=== PATIENT | male | born 1960 | race Native Hawaiian/Other Pacific Islander ===

== ENCOUNTER 2017-05-06 15:53 | Outpatient (CLI) | payer BC ==
[2017-05-06 17:06] LABS: POTASSIUM 3.7 mmol/L (3.6-5.2); SODIUM 141 mmol/L (136-145)
== END 2017-05-06 19:14 | disposition home or self-care (01) ==
LOC: LABW 15:53
PROVIDERS: Pain Medicine Interventional Pain Medicine
DX: R41.3 Other amnesia (principal)
CPT/HCPCS: 36415; 80053; 82607; 82747; 85651; 86039; 86592; 93005

== ENCOUNTER 2017-06-05 17:41 | Inpatient (IN) | payer BC ==
[~2017-06-05] VITALS: Ht 177.8 cm; Wt 136.6 kg
[2017-06-05 17:35] VITALS: BP 104/55; TEMP 97.8
[2017-06-05 18:00] VITALS: BP 98/56
[2017-06-05 19:00] VITALS: BP 110/60
[2017-06-05 19:23] LABS: PLATELET COUNT 229 K/uL (142-355)
[2017-06-05 19:29] LABS: POTASSIUM 4.3 mmol/L (3.6-5.2)
[2017-06-05 20:00] VITALS: BP 102/46
[2017-06-05] MEDS ORDERED: ZESTRIL30 MG PO (20:49)
[2017-06-05] MEDS ORDERED: LOPRESSOR100 MG PO (20:50)
[2017-06-05] MEDS ORDERED: MS CONTIN30 MG PO (20:50)
[2017-06-05] MEDS ORDERED: ASPIR-LOW81 MG OR (20:51)
[2017-06-05] MEDS ORDERED: PERCOCET1 TA3 PO (20:51)
[2017-06-05] MEDS ORDERED: RELAFEN (20:55)
[2017-06-06] VITALS (28 sets, daily range): BP systolic 70–145; BP diastolic 39–76; TEMP 97.6–98.3; Ht 177.8 cm; Wt 136.6 kg
[2017-06-06 04:50] LABS: PLATELET COUNT 240 K/uL (142-355)
[2017-06-06 05:07] LABS: POTASSIUM 4.7 mmol/L (3.6-5.2)
== END 2017-06-06 15:59 | disposition short-term general hospital (02) | DRG 208 ==
LOC: ED 17:41 → ICU 20:40 → MED/SURG 20:40 → ICU 20:40
PROVIDERS: Emergency Medicine; ADMIT Specialist
PROC: 5A1935Z Respiratory Ventilation, Less than 24 Consecutive Hours (ICD-10-PCS; principal; 2017-06-06)
PROC: 0BH17EZ Insertion of Endotracheal Airway into Trachea, Via Natural or Artificial Opening (ICD-10-PCS; 2017-06-06)
DX: E66.2 Morbid (severe) obesity with alveolar hypoventilation (principal); E11.9 Type 2 diabetes mellitus without complications; I95.89 Other hypotension; D72.828 Other elevated white blood cell count; E86.0 Dehydration
CPT/HCPCS: 36415; 36600; 80048; 80307; 81000; 82436; 82570; 82805; 83605; 84133; 84145; 84300; 85027; 86140; 87070; 87077; 87185; 87186; 87205; 93005; 94002; 94760; 96360; 96361; 99284; G0479; J0330; J1265; J1940; J2020; J2310; J3490

== ENCOUNTER 2018-03-12 15:50 | Outpatient (CLI) | payer OTHER ==
[~2018-03-12 15:50] MED LIST: ASPIR-LOW81 MG OR; LOPRESSOR100 MG PO; MS CONTIN30 MG PO; PERCOCET1 TA3 PO; RELAFEN; ZESTRIL30 MG PO
== END 2018-03-12 19:22 | disposition home or self-care (01) ==
LOC: RAD 15:50
DX: I10 Essential (primary) hypertension (principal)
CPT/HCPCS: 93005

== ENCOUNTER 2018-03-26 10:22 | Observation (INO) | payer OTHER ==
[~2018-03-26] VITALS: Ht 177.8 cm; Wt 144.3 kg
[2018-03-26] MEDS ORDERED: HYDR25TA60 PO (11:42)
[2018-03-26 11:44] LABS: PLATELET COUNT 186 K/uL (142-355)
[2018-03-26] MEDS ORDERED: CLON0.1T16 PO (11:44)
[2018-03-26] MEDS ORDERED: DIAZEPAM10 M2 PO (11:45)
[2018-03-26] MEDS ORDERED: PERCOCET1 TA3 PO (11:46)
[2018-03-26] MEDS ORDERED: HYDRALAZINE25 MG PO (11:47)
[2018-03-26 11:56] LABS: POTASSIUM 3.8 mmol/L (3.6-5.2); SODIUM 142 mmol/L (136-145)
[2018-03-26 11:57] VITALS: BP 181/108; TEMP 97.5; Ht 177.8 cm; Wt 144.3 kg
[2018-03-26 16:00] VITALS: BP 155/88; TEMP 98
[2018-03-26 19:50] VITALS: BP 152/87; TEMP 97.6
[2018-03-26 23:49] VITALS: BP 180/98; TEMP 97.7
[2018-03-27 03:55] VITALS: BP 161/92; TEMP 98.1
[2018-03-27 05:48] LABS: PLATELET COUNT 208 K/uL (142-355)
[2018-03-27 06:01] LABS: POTASSIUM 3.4 mmol/L (3.6-5.2)
[2018-03-27 08:05] VITALS: BP 151/82; TEMP 97.8
[2018-03-27 12:00] VITALS: BP 147/86; TEMP 97.9
== END 2018-03-27 14:50 | disposition home or self-care (01) ==
LOC: MED/SURG 10:22
PROVIDERS: ADMIT Family Medicine
DX: R60.1 Generalized edema (principal); I10 Essential (primary) hypertension; E78.4 Other hyperlipidemia; R01.1 Cardiac murmur, unspecified; E66.01 Morbid (severe) obesity due to excess calories; G47.39 Other sleep apnea; M54.5 Low back pain; R73.03 Prediabetes
CPT/HCPCS: 36415; 80053; 81000; 82550; 82948; 83880; 84484; 85027; 93005; 96372; 99220; G0378; G0379; J1650; J1940; J3490

== ENCOUNTER 2018-10-26 17:44 | Outpatient (CLI) | payer OTHER ==
[~2018-10-26 17:44] MED LIST changes: +CLON0.1T16 PO; +DIAZEPAM10 M2 PO; +HYDR25TA60 PO; +HYDRALAZINE25 MG PO
== END 2018-10-26 22:42 | disposition home or self-care (01) ==
LOC: RAD 17:44
DX: M54.2 Cervicalgia (principal); S39.92XA Unspecified injury of lower back, initial encounter; M54.6 Pain in thoracic spine

== ENCOUNTER 2018-12-03 09:29 | Outpatient (CLI) | payer OTHER | END 2018-12-03 21:00 | disposition home or self-care (01) | LOC: CT 09:29 | DX: M54.12 Radiculopathy, cervical region (principal); M54.16 Radiculopathy, lumbar region; S12.9XXA Fracture of neck, unspecified, initial encounter ==

== ENCOUNTER 2019-05-13 10:52 | Outpatient (CLI) | payer OTHER ==
[2019-05-13 11:17] LABS: POTASSIUM 4.3 mmol/L (3.6-5.2)
== END 2019-05-13 23:23 | disposition home or self-care (01) ==
LOC: LABW 10:52
PROVIDERS: Family Medicine
DX: I10 Essential (primary) hypertension (principal)
CPT/HCPCS: 36415; 80053

== ENCOUNTER 2019-05-20 11:00 | Emergency (ER) | payer OTHER ==
[~2019-05-20] VITALS: Ht 177.8 cm; Wt 144.2 kg
[2019-05-20 11:00] VITALS: TEMP 98
[2019-05-20 11:57] LABS: PLATELET COUNT 244 K/uL (142-355)
[2019-05-20 12:02] LABS: POTASSIUM 4.1 mmol/L (3.6-5.2); SODIUM 142 mmol/L (136-145)
[2019-05-20 14:22] VITALS: BP 170/83
== END 2019-05-20 14:22 | disposition short-term general hospital (02) ==
LOC: ED 11:00
PROVIDERS: Emergency Medicine
DX: R07.89 Other chest pain (principal)
CPT/HCPCS: 36415; 80053; 82550; 83690; 83735; 84484; 85027; 93005; 99284

== ENCOUNTER 2019-05-20 14:25 | Outpatient (CLI) | payer OTHER | END 2019-05-20 15:50 | disposition short-term general hospital (02) | LOC: AMB 14:25 | DX: R07.89 Other chest pain (principal); R20.0 Anesthesia of skin; I25.2 Old myocardial infarction | CPT/HCPCS: A0425; A0427 ==